=== PATIENT | male | born 1965 | race Caucasian/White ===

== ENCOUNTER 2017-04-19 21:21 | Inpatient (IN) | payer OTHER ==
[~2017-04-19] VITALS: Ht 182.9 cm; Wt 95.3 kg
[2017-04-19] MEDS ORDERED: VITA1CAP3 PO (22:14)
[2017-04-19] MEDS ORDERED: CYAN250L PO (22:14)
[2017-04-19] MEDS ORDERED: MULT-412 PO (22:14)
[2017-04-19] MEDS ORDERED: SODIUM CHLORIDE FLUSH 10ML SYR IVF ONE (23:00)
[2017-04-19] MEDS ORDERED: MORPHINE SULFATE 4 MG/ML, 1ML IVPush PRN (23:00)
[2017-04-19] MEDS ORDERED: MORPHINE SULFATE 4 MG/ML, 1ML ONE (23:02)
[2017-04-19 23:19] LABS: ANION GAP 8 mmol/L (5-15); CALCIUM 9.2 mg/dL (8.5-10.1); CHLORIDE 102 mmol/L (98-107); CREATININE 0.83 mg/dL (0.7-1.3)
[2017-04-19 23:21] LABS: BASOPHILS # (AUTO) 0.03 x10^3/uL (0-0.1); BASOPHILS % (AUTO) 0 % (0-1); EOSINOPHILS # (AUTO) 0.23 x10^3/uL (0-0.4); EOSINOPHILS % (AUTO) 2 % (1-7); LYMPHOCYTES # (AUTO) 2.74 x10^3/uL (1-3.4); LYMPHOCYTES % (AUTO) 29 % (22-44); MD NO; MEAN CORPUSCULAR HEMOGLOBIN 29.7 pg (27.5-34.5); MEAN CORPUSCULAR HGB CONC 33.2 g/dL (33.2-36.2); MEAN CORPUSCULAR VOLUME 89.4 fL (81-97); MEAN PLATELET VOLUME 8.2 fL (7.4-10.4); MONOCYTES # (AUTO) 0.57 x10^3/uL (0.2-0.8); MONOCYTES % (AUTO) 6 % (2-9); NEUTROPHILS # (AUTO) 5.83 x10^3/uL (1.8-6.8); NEUTROPHILS % (AUTO) 62 % (42-75); PLATELET COUNT 273 x10^3/uL (130-400); RED BLOOD COUNT 5.73 x10^6/uL (4.38-5.82); RED CELL DISTRIBUTION WIDTH 13.9 % (9.4-14.8)
[2017-04-20] MEDS ORDERED: ONDANSETRON 2MG/ML, 2ML IVPush PRN
[2017-04-20] MEDS: LACTATED RINGERS 1,000 ML IV SCH ×2 (00:16→10:30)
[2017-04-20] MEDS: morphine SULFATE 10 MG/ML, 1ML IVPush PRN ×4 (00:55→11:32)
[2017-04-20 03:37] VITALS: BP 119/86
[2017-04-20 07:25] VITALS: BP 116/87
[2017-04-20] MEDS ORDERED: AMOXICILLIN 250 MG/5 ML, ORAL SUSP PO SCH ×2 (12:00→13:00)
[2017-04-20] MEDS ORDERED: HYDROcodone/APAP 7.5-325MG/15ML UDC PO PRN ×2 (12:00→13:00)
[2017-04-20] MEDS ORDERED: AMOX250S6 PO (12:45)
[2017-04-20] MEDS ORDERED: HYDR473S51 PO (12:45)
== END 2017-04-20 13:50 | disposition home or self-care (01) | DRG 921 ==
LOC: ED 23:07 → EDIP 23:35 → 4NOR 23:53
PROVIDERS: ADMIT Hospitalist; ATTEND Hospitalist
DX: J95.830 Postprocedural hemorrhage of a respiratory system organ or structure following a respiratory system procedure (principal); Z98.84 Bariatric surgery status; Y83.6 Removal of other organ (partial) (total) as the cause of abnormal reaction of the patient, or of later complication, without mention of misadventure at the time of the procedure; Y92.89 Other specified places as the place of occurrence of the external cause
CPT/HCPCS: 36415; 80048; 85025; 99285; J2270; J7120